=== PATIENT | male | born 1960 | race Caucasian/White ===

== ENCOUNTER 2018-06-21 22:34 | Inpatient (IN) | payer OTHER ==
[~2018-06-21] VITALS: Ht 175.3 cm; Wt 81.2 kg
--- NOTE | ~2018-06-21 | HC ---
[facility] [place] [address] CONSULTATION Name: DEB BLACK Room #: 355-P [facility] IN .#: [id number] Admission: 06/22/18 ������������������ Attend Phys: Osvaldo Zepeda MD Discharge: ������������������ Date of : 56 Report #: [id number] THIS REPORT FOR: //name// CC: KOFI physician/PCP Osvaldo Zepeda Physician staff DATE OF SERVICE: 06/22/2018 WOUND CARE CONSULTATION REASON FOR CONSULTATION: The patient with poorly controlled diabetes mellitus type 2 and hyperosmolar nonketotic hyperglycemia and cellulitis of the left lower extremity. HISTORY OF PRESENT ILLNESS: The patient a 57-year-old gentleman who presented to the Emergency Room with poorly controlled diabetes mellitus type 2. This may be because of insurance reasons and not taking his medications. He is being treated for hyperosmolar nonketotic hyperglycemia due noncompliance of his medicines. He has been begun on insulin. The patient complains of a callus on his right great toe and swelling of his left foot with only minimal discomfort. He has peripheral neuropathy. This gentleman has history of diabetes mellitus type 2, hypertension, congestive heart failure and peripheral neuropathy. He has noted some redness and swelling, particularly of his left foot, chronic callus on his right great toe. PAST MEDICAL HISTORY: Diabetes mellitus type 2, hypertension, congestive heart failure, peripheral diabetic neuropathy. PAST SURGICAL HISTORY: Pacemaker placement, AICD. ALLERGIES: No known allergies. MEDICATIONS: See chart. PHYSICAL EXAMINATION: GENERAL: Shows chronically ill-appearing 57-year-old gentleman who is alert and conversant. HEENT: Mucous membranes are moist. NECK: Supple. LUNGS: Respirations are unlabored. ABDOMEN: Soft. EXTREMITIES: The patient has calluses of both hands and minor healed abrasions without any open wounds or cellulitis of the hands. Examination of the lower extremities shows dense callus of the right great toe without redness without any identifiable underlying wound. Dorsalis pedis pulse is not palpable. [facility] [address] [place] [address] CONSULTATION Name: DEB BLACK Room #: 355-P [facility] IN [facility]#: [id number] Admission: 06/22/18 ������������������ Attend Phys: Osvaldo Zepeda MD Discharge: ������������������ Date of : 56 Report #: [id number] Examination of the left foot shows mild diffuse edema of the first and second toes of the left foot as well as the dorsum of the foot extending to the ankle. This is mild to moderate. There is also jffd-fc-uerfpiod cellulitis, mild discomfort on palpation. Dorsalis pedis pulses are easily palpated. I do not see any open wounds or diabetic foot ulcers per se in either foot. IMPRESSION: 1. Diabetes mellitus type 2, poorly controlled with cellulitis of left toes, foot and leg. 2. Callus of right great toe. 3. Peripheral vascular disease. We will order bilateral lower extremity Dopplers. 4. Diabetes mellitus type 2 with peripheral neuropathy. PLAN: IV antibiotics for cellulitis. We will order lower extremity arterial Dopplers. Order moisturizing cream to the right foot. Wound care team will follow. ��������������������������������������������� ���������������������������������������� By: ��������������������������������������������� [id number] Cristi Hitchcock MD /nt
[~2018-06-21 22:34] MED LIST: AMARYL2 MG OR; ASPIRIN EC81 M1 OR; CARVEDILOL3.125 MG PO; CIPRO500 MG PO; COLACE100 MG OR; COUMADIN6 MG OR; DENIES; FLAGYL500 MG PO; HYDROCODON-ACE1 EAC7 OR; KEFLEX500 MG PO; LASIX 40 MG TAB40 M1 OR; LOVENOX SC; NORCO 5-325 TA1 EACH PO; NORFLEX100 MG PO; ONDANSETRON HCL4 M2 PO; POTASSIUM20 OR; PROTONIX40 M2 OR; TERBINAFINE; TRIAM60; XOPENEX0.63 MG/3 IH; ZESTRIL10 MG OR
[2018-06-21 22:51] VITALS: BP 142/106
[2018-06-21 23:52] LABS: BE(vivo) -0.1 mmol/L (-2 to +3); HCO3 24.2 mmol/L (22.0-26.0); PCO2 VENOUS 38.6 mmHg (41.0-51.0); PO2 VENOUS 51.2 mmHg (35.0-45.0)
[2018-06-22] VITALS (11 sets, daily range): BP systolic 78–138; BP diastolic 54–105
[2018-06-22 00:20] LABS: ABSOLUTE NEUTROPHILS 2.9 thou/uL (1.4-8.2); BASOPHILS 0.6 % (0.0-2.0); EOSINOPHILS 2.4 % (0.0-3.0); HEMATOCRIT 46.4 % (42.0-52.0); HEMOGLOBIN 15.4 gm/dL (14.0-18.0); LYMPHOCYTES 30.5 % (24.0-44.0); MCHC 33.2 g/dL (28.0-37.0); MCV 90.3 fL (80.0-100.0); MONOCYTES 11.3 % (1.0-8.0); PLATELET COUNT 196 thou/uL (150-400); POLYS 55.2 % (36.0-66.0); RBC 5.13 mil/uL (4.50-6.00); RDW 13.7 % (10.5-14.5); WBC 5.2 thou/uL (4.0-11.0)
[2018-06-22 00:21] LABS: URINE BILIRUBIN NEGATIVE (Negative); URINE BLOOD TRACE (Negative); URINE CLARITY CLEAR; URINE COLOR YELLOW; URINE GLUCOSE-RANDOM* 3+ (Negative); URINE KETONES NEGATIVE (Negative); URINE LEUKOCYTES-REFLEX NEGATIVE (Negative); URINE NITRITE-REFLEX NEGATIVE (Negative); URINE PROTEIN (DIPSTICK) TRACE (Negative)
[2018-06-22 00:25] LABS: CALCIUM 7.9 mg/dL (8.5-10.1); CREATININE 1.2 mg/dL (0.7-1.3); POTASSIUM 4.5 mmol/L (3.5-5.1)
[2018-06-22 00:28] LABS: ALBUMIN 2.9 g/dL (3.4-5.0); DIRECT BILIRUBIN 0.2 mg/dL (<0.1-0.3); TOTAL BILIRUBIN 0.7 mg/dL (<0.1-1.0); TOTAL PROTEIN 6.7 g/dL (6.4-8.2)
[2018-06-22 04:57] LABS: ANION GAP 9 mmol/L (7-16); BUN 18 mg/dL (7-18); CALCIUM 8.1 mg/dL (8.5-10.1); CHLORIDE 99 mmol/L (98-107); CHOLESTEROL 99 mg/dL (<200); CO2 25 mmol/L (21-32); CREATININE 1.1 mg/dL (0.7-1.3); HDL CHOLESTEROL 35 mg/dL (>40); LDL CHOLESTEROL 42 mg/dL (<100); POTASSIUM 4.2 mmol/L (3.5-5.1); SODIUM 133 mmol/L (136-145); TC:HDL 2.8 Ratio (Not establshd); TRIGLYCERIDE 110 mg/dL (<150); VLDL 22 mg/dL (<40)
[2018-06-22 05:08] LABS: GLUCOSE 588 mg/dL (74-106); SERUM ASSESSMENT Slight Lipemia
--- NOTE | 2018-06-22 05:49 | NUR ---
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 ADMIT COMPLETED. INITIATED INSULIN DRIP PER POC. HOURLY ACCU CHECKS BEING COMPLETED AND DOCUMENTED ON FLOW SHEET. HOURLY INCREASES HAVE BEEN HAPPENING AND PROVIDER CONTACTED AND IS AWARE. PER PROVIDER KEEP FOLLOWING PROTOCOL AND ADVISE IF ANYTHING CHANGES. LAB CALLED AT 0510 WITH CRITICAL RESULT OF GLUCOSE OF 588, WHICH IS A LOWER AMOUNT FROM THE ER AND DRIP HAD BEEN STARTED. WOUND ON RIGHT BIG TOE DOCUMENTED AND PICTURE TAKEN. HOURLY ROUNDING.
--- NOTE | 2018-06-22 17:39 | NUR ---
PT ADMITS HE HAS NOT TAKEN INSULIN OR BP MEDS FOR ABOUT 6 MONTHS...ADVISED HE NEEDS TO RESUME INSULIN AND OTHER MEDS UPON DISCHARGE..HE AGREES HE WAS NOT TAKING CARE OF HIMSELF AND THAT IS MEDICAID HAD LAPSED BUT STATES HE HAS COVERAGE AGAIN..
[2018-06-23 00:05] LABS: GLYCOHEMOGLOBIN (HGB A1C) 16.1 % (4.8-5.6)
--- NOTE | 2018-06-23 00:12 | EKG ---
[address] [place] [address] ELECTROCARDIOGRAM REPORT Name: DEB BLACK Room #: 355-P ADM IN M.R.#: [id number] ������������������ Admission: 06/22/18 ������������������ Attend Phys: Osvaldo Zepeda MD Discharge: ������������������ Date of : 56 Report #: [id number] ����������������������������������������������������������������� [id number] THIS REPORT FOR: //name// [facility] Test Date: 2018-06-22 Test Time: 22:27:50 Pat Name: DEB BLACK Department: Room: 355 P Gender: M Customer Service Receptionist: 3W : 1960 Requested By: Mariely Irvin Order Number: [id number] MD: Nehemias Terry Measurements Intervals [place] Rate: 97 P: MD: QRS: -53 QRSD: 92 T: 108 QT: 378 QTc: 480 Interpretive Statements Atrial fibrillation Left anterior fascicular block low voltage in the limb leads Anteroseptal infarct, old Nonspecific ST/T abnormalities Compared to ECG 04/11/2015 17:09:49 no significant changes Electronically Signed On 06-23-2018 0:12:25 CDT by Nehemias Terry [email or web address] ��������������������������������������������� <ELECTRONICALLY SIGNED> ���������������������������������������� By: Nehemias Terry MD ��������������������������������������������� 06/23/18 0012 26 Nehemias Terry MD /EPI
[2018-06-23 00:30] VITALS: BP 93/74
[2018-06-23 03:00] VITALS: BP 91/75
[2018-06-23 05:45] LABS: CALCIUM 8.3 mg/dL (8.5-10.1); CREATININE 1.1 mg/dL (0.7-1.3); POTASSIUM 4.2 mmol/L (3.5-5.1)
--- NOTE | 2018-06-23 05:45 | NUR ---
Patient converted to afib on 06/22/18 dayshift. Tele strips posted in chart. At shift change around 1900, patient had a SBP of 78. BP rechecked and SBP was up in the 80's. Order given by Keith Irvin NP to hold Lisinopril and recheck BP in 2 hours. At 2130, patient's SBP still in the mid to high 80's. Orders given by Keith Irvin NP to get an EKG and call cardiology about the low BP and atrial fib. Patient doesn't remember if he has had afib in the past or not. Orders given by cardiology to do a 300 ml bolus and recheck BP; if SBP less than 90, then do a 250 ml bolus. Hospitalist and Cardiology both informed of patient's a-fib and that the patient hit a nonsustained HR of 140 at one point. Patient has since then converted back to sinus rhythm to sinus tach. Patient has had moderate to severe weakness. Patient can only lightly squezze hands during assessments. Patient has 1+ edema to hands and feet. Hubert wraps removed from bilateral extremities at bedtime per order. A bladder scan was done around 0500 this shift due to no urine output. Order given by Keith Irvin NP to straight cath patient. Patient was able to urinate 300 ml of sanjay colored urine after trying. Bladder scan redone with only 90-100 ml of urine in the bladder. Straight cath therefore not done. Patient bed alarm on and call light in place. Patient partially progressing toward plan of care goals at this time.
[2018-06-23 07:41] VITALS: BP 112/87
--- NOTE | 2018-06-23 09:06 | 2DMMODE ---
[facility] [address] [place] [address] 2 D/M-MODE ECHOCARDIOGRAM Name: DEB BLACK Room #: 355-P [facility] IN .R.#: [id number] ������������� Admission: 06/22/18 ������������� Attend Phys: Luke Houston MD Discharge: ��� ������������� ��� Date of : 56 Date of Service: 06/23/18 0905 �� Report #: [id number] �������� ��������������������������������������������[id number] THIS REPORT FOR: //name// APPROVED REPORT Study performed: 06/23/2018 08:04:54 EXAM: Comprehensive 2D, Doppler, and color-flow Echocardiogram Patient Location: Bedside Room #: 355 Status: routine BSA: 1.98 HR: 88 bpm BP: 112/87 mmHg Rhythm: NSR Other Information Study Quality: Good Indications Congestive Heart Failure Diabetes Pacemaker Hypertension/HDD edema 2D Dimensions RVDd: 45.17 mm IVSd: 13.11 (7-11mm) LVOT Diam: 22.03 (18-24mm) LVDd: 46.33 mm PWd: 12.32 (7-11mm) Ascending Ao: 41.26 (22-36mm) LVDs: 43.55 (25-40mm) Aortic Root: 38.45 mm IVC: 24.00 mm Volumes Left Atrial Volume (Systole) Single Plane 4CH: 81.88 mL Single Plane 2CH: 85.27 mL LA ESV Index: 44.00 mL/m2 Aortic Valve AoV Peak Sung.: 2.24 m/s AO Peak Gr.: 20.15 mmHg LVOT Max P.85 mmHg AO Mean Gr.: 10.01 mmHg LVOT Mean P.43 mmHg AO V2 Mean: 1.41 m/s LVOT Max V: 0.46 m/s [facility] [address] [place] [address] 2 D/M-MODE ECHOCARDIOGRAM Name: BLACKDEB Room #: 355-[facility] IN ..#: [id number] ������������� Admission: 06/22/18 ������������� Attend Phys: Luke Houston MD Discharge: ��� ������������� ��� Date of : 56 Date of Service: 06/23/18 0905 �� Report #: [id number] �������� ��������������������������������������������[id number] AO V2 VTI: 41.04 cm LVOT Mean V: 0.30 m/s JAYDA (VTI): 0.74 cm2 LVOT V1 VTI: 7.94 cm JAYDA Vmax: 0.78 cm2 SV (LVOT): 30.23 mL Mitral Valve E/A Ratio: 1.6 MV Decel. Time: 160.42 ms MV E Max Sung.: 0.63 m/s MV A Sung.: 0.39 m/s MV PHT: 46.52 ms IVRT: 156.86 ms Pulmonary Valve PV Peak Sung.: 0.74 m/s PV Peak Gr.: 2.20 mmHg Pulmonary Vein P Vein S: 0.27 m/s P Vein A: 0.14 m/s P Vein D: 0.46 m/s P Vein A Dur.: 73.8 msec P Vein S/D Ratio: 0.59 Tricuspid Valve TR Peak Sung.: 3.25 m/s RAP Estimate: 15.00 mmHg TR Peak Gr.: 42.15 mmHg PA Pressure: 57.00 mmHg Left Ventricle The left ventricle is normal size. There is global hypokinesis of the left ventricle. Mild concentric left ventricular hypertrophy. Left ventricular ejection fraction is severely decreased. LVEF is 20%. Moderate diastolic dysfunction is present (pseudonormal filling). Right Ventricle Right ventricle is moderately dilated. The right ventricular systolic function is normal. Atria Left atrium is moderately dilated. Right atrium is severely dilated. Aortic Valve Aortic valve is moderate to heavily calcified. Mild aortic regurgitation. Low flow-low gradient severe aortic stenosis suggested. JAYDA by continuity equation is 0.8 cm2 with a max pressure gradient of 20 mmHg and a mean pressure gradient of [address] [address] 2 D/M-MODE ECHOCARDIOGRAM Name: DEB BLACK Room #: 355-P [facility] IN .R.#: [id number] ������������� Admission: 06/22/18 ������������� Attend Phys: Luke Houston MD Discharge: ��� ������������� ��� Date of : 56 Date of Service: 06/23/18 0905 �� Report #: [id number] �������� ��������������������������������������������[id number] Mitral Valve The mitral valve is normal in structure. Trace to mild mitral regurgitation. No evidence of mitral valve stenosis. Tricuspid Valve The tricuspid valve is normal in structure. Severe tricuspid regurgitation. PAP is estimated at 55 mmHg. Pulmonic Valve The pulmonary valve is normal in structure. Trace pulmonic regurgitation. Great Vessels The aortic root is mildly dilated at 3.8 cm. The ascending aorta is mildly dilated at 4.1 cm. IVC is dilated and collapses <50% with inspiration. Pericardium There is no pericardial effusion. <Conclusion> Left ventricular ejection fraction is severely decreased. LVEF is 20%. Four chamber enlargement Aortic valve is moderate to heavily calcified. Low flow-low gradient severe aortic stenosis suggested. JAYDA by continuity equation is 0.8 cm2 (max pressure gradient of 20 mmHg and a mean pressure gradient of 10 mmHg). The mitral valve is normal in structure. Trace to mild mitral regurgitation. Severe tricuspid regurgitation. Pulmonary artery pressure estimated at 55 mmHg. The ascending aorta is mildly dilated at 4.1 cm. There is no pericardial effusion. ��������������������������������������������� <ELECTRONICALLY SIGNED> ���������������������������������������� By: Yony King MD, [facility] ��������������������������������������������� 06/23/18904 4 4 Yony King MD, FACC /INF
--- NOTE | 2018-06-23 09:59 | HC ---
[facility] [place] [address] CONSULTATION Name: DEB BLACK Room #: 355-P ADM IN M.R.#: [id number] Admission: 06/22/18 ������������������ Attend Phys: Luke Houston MD Discharge: ������������������ Date of : 56 Report #: [id number] THIS REPORT FOR: //name// CC: [facility] physician/PCP Osvaldo Zepeda Physician staff DATE OF SERVICE: 06/22/2018 REASON FOR CONSULTATION: Lower extremity edema. HISTORY OF PRESENT ILLNESS: The patient carries a diagnosis of congestive heart failure and cardiomyopathy, although he cannot relate that to me. He does have a device in place the specifics of which are not available and the patient cannot record. He states that over the last 3 weeks or so, he has been having progressive lower extremity edema. He also associates some degree of orthopnea, though he noticed that worsening. He appears to be somewhat confused at times of his history not being consistent. He denies orthopnea or PND prior to 3 weeks ago. The issue of admission now is that he had not communicated or been seen by family until the day of admission when he has been seen and brought to the Emergency Room. Upon questioning, he denies any chest pain, pressure, tightness or heaviness. He has been without his medications for numerous months. He states his edema is much better now with his feet elevated on the bed, but had been more prominent at the end of the days after he has been sitting for most of the day. PAST MEDICAL HISTORY: 1. Diabetes mellitus. 2. Hypertension. 3. History of cardiomyopathy with heart failure, although echo from before demonstrates an ejection fraction of 40-45%. PAST SURGICAL HISTORY: Significant for permanent pacing device implanted. MEDICATIONS AT HOME: Had apparently been on antibiotics and metformin. ALLERGIES: No known drug allergies. SOCIAL HISTORY: The patient lives with his who apparently is schizophrenic and unable to care for themselves according to the patient. He denies any alcohol or use recreational drugs. REVIEW OF SYSTEMS: Except for symptoms previously mentioned and those commensurate with comorbid state, the 10-point review of system is negative. LABORATORY DATA: Reviewed and noted in the chart. [facility] [address] [place] [address] CONSULTATION Name: DEB BLACK Room #: 355-P [facility] IN M.R.#: [id number] Admission: 06/22/18 ������������������ Attend Phys: Luke Houston MD Discharge: ������������������ Date of : 56 Report #: [id number] PHYSICAL EXAMINATION: GENERAL: Well-developed, well-nourished male, resting comfortably, in no acute distress. VITAL SIGNS: Noted and reviewed in the chart. HEENT: Normocephalic, atraumatic. Pupils are equal, round, reactive to light and accommodation. Extraocular muscles are intact. Sclerae and conjunctivae are anicteric. NECK: JVD is normal. Carotid upstrokes are bilaterally symmetrical. No bruits are heard. No thyromegaly. No lymphadenopathy. LUNGS: Failed to demonstrate any significant crackles currently, but he is slightly tachypneic. CARDIAC: Regular rhythm. Soft systolic murmur at the outflow tract. No gallops or rubs. Preserved first and second heart tones. ABDOMEN: Soft, nontender, nondistended. Normal bowel sounds. EXTREMITIES: Without cyanosis, clubbing or edema. Distal pulses are intact. DTR symmetrical. NEUROLOGIC: Cranial nerves 2-12 are grossly normal and symmetrical. PSYCHIATRIC: Alert, oriented with normal affect. SKIN: Warm and dry. IMPRESSION: 1. Lower extremity edema in an individual that has a history of cardiomyopathy. I am going to get 2D echo Doppler. He has already been given diuretics and actually is diuresing significantly. I am concerned about the possibility of intravascular dehydration. The patient also has risk factors for cardiac dysrhythmias such as atrial fibrillation and he is monitored now will be able to further delineate that more fully. 2. Hypertension. We will need to check blood pressures to make sure where he stands. He is currently in the low 100s and in a sinus rhythm and we will then decide how we need to proceed further, especially with the possibility of cardiomyopathy requiring guideline-directed medical therapy for that. 3. Diabetes mellitus, as per primary care, need to monitor more fully. 4. Device implanted, we will need to try and figure out what kind of device he actually has currently. ��������������������������������������������� <ELECTRONICALLY SIGNED> ���������������������������������������� By: Nehemias Terry MD ��������������������������������������������� 06/23/18 0959 [id number] 0001 Nehemias Terry MD /nt
--- NOTE | 2018-06-23 10:30 | NUR ---
RD consult received. Hx diabetes, poor controlled, A1C 16, with noncompliant behavior. Also vascular diabetic food ulcer-wound care to see. Afib and npo for echo today. Appetite previously good. Unsure of any wt changes. Will follow up in next 1-2 days to determine diet education needs, willingness to learn. Was also noted pt with financial concerns and could not afford diabetic meds-SWS following as well.
[2018-06-23 12:31] VITALS: BP 109/83
[2018-06-23 16:08] VITALS: BP 98/81
--- NOTE | 2018-06-23 16:48 | NUR ---
WOUND CONSULT: PT. WAS SEEN TODAY BY DR. SONI AND MYSELF. PT. HAS A DIABETIC ULCER TO HIS RIGHT GREAT TOE. RECOMMENDATIONS: BETTINA SENA KERLIX, CHANGE DAILY AND PRN. PT. AND STAFF NURSE WERE INSTRUCTED ON PLAN OF CARE.
--- NOTE | 2018-06-23 17:32 | NUR ---
INITIAL ASSESSMENT; SW received consult due to pt needing assistance with medication. REviewed chart and spoke with nursing and attending physician. Pt was admitted from home due to hyperglycemia. SW met with pt at bedside. Introduced role of SW. Pt is alert/orientated x 4. Pt reports he lives at home with family. Prior to admission, pt was independent with ADLS. No use of DME. Pt states he does not have a PCP to follow up with and has trouble getting his medications filled. Pt states he needs to get connected with a clinic. SW to provide pt with Health Resource Guide. Critical access hospital to meet with pt tomorrow to discuss medication assistance. SW is following to assist as needed with discharge planning.
--- NOTE | 2018-06-23 18:37 | NUR ---
CARDIAC NURSE SPOKE WITH PATIENT ABOUT HIS CHF...FLUID RESTRICTION 1750ML PER 24 HOURS...WILL MONITOR
[2018-06-23 20:05] VITALS: BP 96/72
[2018-06-24 04:40] VITALS: BP 123/97
--- NOTE | 2018-06-24 06:45 | NUR ---
Patient remains to have flushed skin and SOB with exertion. Patient has bounding pulses. Patient has been in SR/ST with occasional paced beats. Patient slept most of shift and didn't ambulate. Patient stated it hurts when he walks or stands because of his foot pain and doesn't prefer to at this time. Patient encouraged to try and walk today with PT. Bed alarm on and call light within reach. Patient not making much progress towards plan of care at this time.
[2018-06-24 07:13] LABS: ESTIMATED AVERAGE GLUCOSE > 398 mg/dL (()); GLYCOHEMOGLOBIN (HGB A1C) > 15.5 % (4.8-5.6)
[2018-06-24 08:08] VITALS: BP 127/88
--- NOTE | 2018-06-24 10:53 | NUR ---
Followup: pt with poor controlled diabetes, and right great toe diabetic ulcer followed by wound care. Appetite is good. States usual wt 160 lb, current wts much higher-pt is on a fluid restriction. SWS working with pt regarding financial concerns. Pt denied need to talk about appropriate diet although his A1C is 15.5. Continue to offer encouragement of compliance. Low nutrition risk
[2018-06-24 11:52] VITALS: BP 101/81
--- NOTE | 2018-06-24 14:02 | NUR ---
PT ALERT AND ORIENTED TIMES FOUR. VSS,93%RA, SR ON TELE. PT C/O NAUSEA AND PAIN PRN MEDICATIONS GIVEN WITH GOOD RELEIF. PT EATS SMALL PORTIONS OF MEALS, TOLERATES MEDS. PT WAS ONLY ABLE TO SIT ON THE SIDE OF BED WITH PHYSICAL THEARPY. DRESSING TO RIGHT GREAT TOE DONE. WILL CONTINUE TO MONITOR.
--- NOTE | 2018-06-24 15:29 | NUR ---
SW reviewed chart and spoke with nursing and attending physician. Pt is progressing towards goals for discharge. Discharge home is anticipated for tomorrow. UR tech to meet with pt to discuss medication assistance programs. Pt with hx of diabetes and hx of noncompliance. SW is following to assist as needed with discharge planning.
[2018-06-24 15:30] VITALS: BP 96/70
--- NOTE | 2018-06-24 16:27 | NUR ---
WOUND FOLLOW UP: PT. WAS SEEN TODAY BY DR. SONI AND MYSELF. PT. WOUND IS CLINICALLY BETTER TODAY AND HAS SHOWN GREAT IMPOROVEMENT. RECOMMENDATIONS: CONTINUE WITH CURRENT PLAN OF CARE. PT. AND STAFF NURSE WERE INSTRUCTED ON PLAN OF CARE.
[2018-06-24 19:34] VITALS: BP 99/74
[2018-06-25] VITALS (8 sets, daily range): BP systolic 95–141; BP diastolic 67–103
--- NOTE | 2018-06-25 02:50 | NUR ---
WHEN ROUNDING ON PATIENT DURING HOURLY ROUNDS, PT NOTIED TO BE SLEEPING BUT DIAPHORETIC. PT WAS ARROUSABLE. BG LOW. PT STATED HE ASTRID DIZZY AND WEAK. 2 JUICE CUPS GIVEN. BG RECHECKED, 51. ANOTHER JUICE AND 1 MILK GIVEN. SEE REPEAT BG VALUES DOCUMENTED IN BLOOD GLUCOSE INTERVENTION. BG IMPROVED TO 75. PT STATED HE WAS FEELING BETTER. COMPLETE BED BATH GIVEN. PT SLEEPING AT THIS TIME. WILL CONTINUE TO MONITOR FURTHER.
--- NOTE | 2018-06-25 04:21 | NUR ---
ASSUMED PT CARE AROUD 190. A&OX4. C/O BLE AND BILAT FOOT PAIN. TYLENOL GIVEN WITH SOME RELIEF. C/O SOA, WHICH HE STATES IS NOT NEW. O2 SATS STABLE. PLACED ON 2L NC FOR COMFORT. PT SLEPT MOST OF THE NIGHT. FALL PRECAUTIONS IN PLACE. BP STABLE. NOT PROGRESSING WELL TOWARD POC GOALS. WILL CONTINUE TO MONITOR FURTHER.
[2018-06-25 05:20] LABS: URINE BILIRUBIN NEGATIVE (Negative); URINE BLOOD NEGATIVE (Negative); URINE CLARITY CLEAR; URINE COLOR YELLOW; URINE GLUCOSE-RANDOM* TRACE (Negative); URINE KETONES TRACE (Negative); URINE LEUKOCYTES-REFLEX NEGATIVE (Negative); URINE NITRITE-REFLEX NEGATIVE (Negative); URINE PROTEIN (DIPSTICK) 2+ (Negative); URINE SPECIFIC GRAVITY >= 1.030 (1.005-1.035)
[2018-06-25 05:41] LABS: BACTERIA-REFLEX 1-9 Few /HPF (None Seen); CASTS None Seen /LPF (None Seen); CRYSTALS None Seen /LPF (None Seen); MUCUS 4-6 Moderate strn/LPF (None Seen); SQUAMOUS 4-10 Moderate /LPF (0-3); URINE RBC 3-10 Few /HPF (0-2); URINE WBC-REFLEX 0-5 Rare /HPF (0-5)
--- NOTE | 2018-06-25 06:14 | NUR ---
PT HAD SOME URINARY RETENTION DURING THE NIGHT. BLADDER SCAN 647 ML. NOTIFIED NEUROBIOLOGIST ENERGY TRADER. STRAIGHT CATHED X1 PER ORDER. WILL UPDATE ONCOMING NURSE.
--- NOTE | 2018-06-25 07:36 | NUR ---
care of pt assumed this am @ ~0700. pt noted to be sleeping, awakened for introduction, aox4, no co pain, no co n/v at this time. pt noted to breathe as if jonathan dumont rn states that this is the breathing pattern she saw last night. pt noted to have removed his jonathan gerard rn replaced to nares @ 2lt. day rn introduced.
[2018-06-25] MEDS ORDERED: GLUCOPHAGE500 MG PO (12:52)
[2018-06-25] MEDS ORDERED: ASPIR 8181 MG PO (12:52)
[2018-06-25] MEDS ORDERED: ACETAMINOPHEN325 M1 PO (12:52)
[2018-06-25] MEDS ORDERED: CARVEDILOL3.125 MG PO (12:52)
[2018-06-25] MEDS ORDERED: LANTUS100 UNIT/M SUBQ (12:52)
--- NOTE | 2018-06-25 14:45 | NUR ---
WOUND FOLLOW UP: PT. WAS SEEN TODAY BY DR. SONI AND MYSELF. PT. WOUND IS CLINICALLY IMPROVED OVER THIS HOSPITAL STAY. RECOMMENDATIONS: CONTINUE WITH CURRENT PLAN OF CARE. PT. AND STAFF NURSE WERE INSTRUCTED ON PLAN OF CARE.
--- NOTE | 2018-06-25 15:15 | NUR ---
DISCHARGE NOTE: SW reviewed chart and spoke with nursing and attending physician. Pt is medically stable for discharge home today. Scripts written. [facility] provided pt with prescription discount cards. SW met with pt at bedside to discuss discharge plan. SW informed pt that his Medicaid is active. Pt was under the impression that it is not active. SW explained that meds should be covered with his Medicaid. SW provided pt with [facility] Resource Guide and prescription discount card. Pt with new script for lantus. SW explained that it will be injectable. Pt states he has not been on insulin in the past, but will do it, if he is shown how to do it. Pt's dtr will provide transportation home. Pt's nurse to call in scripts to [facility]. Case Mgmt to vouch if insurance does not cover meds. Discussed case with Director of Case Mgmt. Pt instructed to establish primary care with a PCP/[facility] clinic. Pt verbalized understanding. SW is following to finalize discharge plan.
== END 2018-06-25 18:48 | disposition home or self-care (01) | DRG 637 ==
LOC: ER 22:34 → EROBS 06-22 01:19 → 3W 06-22 01:19
PROVIDERS: Emergency Medicine; Nurse Practitioner Acute Care; Nurse Practitioner Family; ADMIT Hospitalist
DX: E11.00 Type 2 diabetes mellitus with hyperosmolarity without nonketotic hyperglycemic-hyperosmolar coma (NKHHC) (principal); I50.23 Acute on chronic systolic (congestive) heart failure; L03.116 Cellulitis of left lower limb; E11.51 Type 2 diabetes mellitus with diabetic peripheral angiopathy without gangrene; I11.0 Hypertensive heart disease with heart failure; E11.42 Type 2 diabetes mellitus with diabetic polyneuropathy; F19.10 Other psychoactive substance abuse, uncomplicated; E11.621 Type 2 diabetes mellitus with foot ulcer; L97.519 Non-pressure chronic ulcer of other part of right foot with unspecified severity; E11.65 Type 2 diabetes mellitus with hyperglycemia; I48.0 Paroxysmal atrial fibrillation; I35.0 Nonrheumatic aortic (valve) stenosis; Z91.14 Patient's other noncompliance with medication regimen; Z79.01 Long term (current) use of anticoagulants; Z71.3 Dietary counseling and surveillance; Y99.8 Other external cause status; Z79.4 Long term (current) use of insulin; Z79.2 Long term (current) use of antibiotics; Z79.899 Other long term (current) drug therapy; Z95.810 Presence of automatic (implantable) cardiac defibrillator; Z91.11 Patient's noncompliance with dietary regimen
CPT/HCPCS: 10879